=== PATIENT | female | born 1930 | race Caucasian/White ===

== ENCOUNTER → 2019-03-03 | Outpatient (CLI) | payer OTHER ==
[~2019-03-03] MED LIST: ADULT LOW DOSE81 MG PO; AMLODIPINE BESY10 MG PO; ATIVAN0.5 MG PO; COLACE 100 MG100 MG PO; COLACE100 MG PO; DARVOCET-N 1001 EACH PO; DYRENIUM100 MG PO; FUROSEMIDE PO; K-DUR 20 MEQ T20 MEQ PO; LASIX 40 MG TAB40 M1 PO; LEXAPRO 10 MG T10 MG PO; LIPITOR20 MG PO; LISINOPRIL40 MG PO; MEGESTROL40 MG/1 M1 PO; METOLAZONE 5 MG5 M1 PO; NORVASC 5 MG TAB5 MG PO; OMEPRAZOLE20 MG PO; PLAVIX 75 MG TA75 MG PO; PRILOSEC 20 MG20 MG PO; REQUIP 0.25 M0.25 MG PO; TRIAMTERENE-HC1 EAC1 PO; VENTOLIN17 GM INH; ZOCOR 20 MG TAB20 M1 PO
[2019-03-03 08:39] LABS: CALCIUM 9.2 mg/dL (8.5-10.1); CREATININE 0.8 mg/dL (0.6-1.0); POTASSIUM 3.7 mmol/L (3.5-5.1)
== END ==
LOC: CAT 08:02
PROVIDERS: Internal Medicine
DX: N28.1 Cyst of kidney, acquired (principal); K76.89 Other specified diseases of liver; K57.30 Diverticulosis of large intestine without perforation or abscess without bleeding; J98.11 Atelectasis; Z90.49 Acquired absence of other specified parts of digestive tract